=== PATIENT | female | born 1955 | race Caucasian/White ===

== ENCOUNTER 2019-06-10 05:54 | Inpatient (IN) | payer OTHER ==
[2019-06-05 12:02] VITALS: BMI 22.8
[~2019-06-10 05:54] MED LIST: CELECOXIB 200 MG CAPSULE PO ONE; PANTOPRAZOLE 40 MG TABLET PO ONE; oxyCODONE HCL 10 MG SUSTAINED ACTING TABLET PO ONE
[2019-06-10] MEDS ORDERED: oxyCODONE HCL 10 MG SUSTAINED ACTING TABLET ONE (06:23)
[2019-06-10] MEDS ORDERED: CELECOXIB 200 MG CAPSULE ONE (06:23)
[2019-06-10] MEDS ORDERED: BUPIVACAINE HCL/PF 0.5% (5 MG/ML) 30 ML VIAL IJ ONE (06:57)
[2019-06-10] MEDS ORDERED: MIDAZOLAM HCL 2 MG/2 ML SINGLE DOSE VIAL ONE ×4 (06:57→10:52)
[2019-06-10] MEDS ORDERED: ceFAZolin SODIUM 1 GM VIAL ONE ×3 (07:18→11:09)
[2019-06-10] MEDS ORDERED: VANCOMYCIN 1,000 MG VIAL (RESTRICTED TO ID ONLY) ONE ×2 (07:18→11:09)
[2019-06-10] MEDS ORDERED: TRANEXAMIC ACID 1000 MG/10 ML VIAL ONE ×2 (07:18→09:41)
[2019-06-10] MEDS ORDERED: PHENYLEPHRINE HCL 10 MG/1 ML SINGLE DOSE VIAL ONE ×2 (07:35→09:41)
[2019-06-10] MEDS ORDERED: PROPOFOL 20 ML ONE ×6 (07:36→10:37)
--- NOTE | 2019-06-10 07:45 | HP ---
Admitting History and Physical - Admission Chief Complaint: right hip osteoarthritis x years History of Present Illness: 63 year old female presents in regard to her right hip. Long-standing history of right hip osteoarthritis. Patient complains of pain, limited range of motion , difficulty ambulating, and difficulty with activities of daily living. Patient has failed conservative treatment options including PO medications, activity modification, injections, and exercise programs. At this point, patient like to proceed with surgical intervention, right total hip arthroplasty MAKOplasty. History Source: Patient - Past Medical History Cardiovascular: Yes: HTN Musculoskeletal: Yes: Osteoarthritis Dermatology: Yes: Psoriasis - Past Surgical History Additional Past Surgical History: See written history & physical. - Smoking History Smoking history: Former smoker Have you smoked in the past 12 months: No If you are a former smoker, when did you quit?: 1986 - Alcohol/Substance Use Hx Alcohol Use: Yes (RARE) Home Medications - Allergies Allergies/Adverse Reactions: Allergies Allergy/AdvReac Type Severity Reaction Status Date / Time No Known Drug Allergies Allergy Verified 06/05/19 11:51 - Home Medications Home Medications: Ambulatory Orders Ixekizumab [Taltz Syringe] 80 mg SQ MONTHLY 06/05/19 Lisinopril/Hydrochlorothiazide [Lisinopril-Hctz 20-12.5 mg Tab] 2 each PO DAILY 06/05/19 Review of Systems - Review of Systems Musculoskeletal: reports: Decreased ROM (right hip), Extremity Pain, Joint Pain (right hip) Physical Examination Vital Signs: Vital Signs Temperature 98.3 F 06/10/19 06:43 Pulse Rate 74 06/10/19 06:43 Respiratory Rate 18 06/10/19 06:43 Blood Pressure 140/80 06/10/19 06:43 O2 Sat by Pulse Oximetry (%) Constitutional: Yes: Well Nourished, No Distress Eyes: Yes: Conjunctiva Clear HENT: Yes: Atraumatic Neck: Yes: Supple Cardiovascular: Yes: Regular Rate and Rhythm Respiratory: Yes: Regular Gastrointestinal: Yes: Soft ...Rectal Exam: Yes: Deferred Musculoskeletal: Yes: Joint Stiffness (right hip), Joint Swelling (right hip) Assessment/Plan 63 year old female presents in regard to her right hip. Long-standing history of right hip osteoarthritis. Patient complains of pain, limited range of motion , difficulty ambulating, and difficulty with activities of daily living. Patient has failed conservative treatment options including PO medications, activity modification, injections, and exercise programs. At this point, patient like to proceed with surgical intervention, right total hip arthroplasty MAKOplasty. Pros, cons, risks, benefits, and alternatives of a right total hip arthroplasty MAKOplasty were discussed with the patient at length. Patient confirms their understanding and consents to proceed with a right total hip arthroplasty MAKOplasty.
[2019-06-10] MEDS ORDERED: BUPIVICAINE 0.25%/MORPH PF/KETOROLAC - 51ML DISP.SYRINGE IA ONE ×3 (08:00→10:03)
[2019-06-10] MEDS ORDERED: TRANEXAMIC ACID 1000 MG/10 ML VIAL IVPUSH ONE ×2 (08:00→10:02)
[2019-06-10] MEDS ORDERED: CEFAZOLIN 2 GM in DEXTROSE 5%-WATER - 50 ML IVPB ONE (08:00)
[2019-06-10] MEDS ORDERED: ePHEDrine SULFATE 50 MG/1 ML AMPULE ONE (08:25)
[2019-06-10] MEDS ORDERED: VANCOMYCIN 1,000 MG VIAL (RESTRICTED TO ID ONLY) IVPB ONE (09:47)
[2019-06-10] MEDS ORDERED: ONDANSETRON 4 MG/2 ML VIAL ONE (10:13)
[2019-06-10] MEDS ORDERED: DEXAMETHASONE SOD PHOSPHATE 4 MG/1 ML VIAL ONE (10:13)
--- NOTE | 2019-06-10 13:04 | OP ---
Operative Note - Note: Operative Date: 06/10/19 Pre-Operative Diagnosis: Right hip OA Operation: Right MITCH ANGELA Post-Operative Diagnosis: Same as Pre-op Surgeon: Vicente Magana Travel Professional: Tanner Bardales Anesthesia: Spinal Estimated Blood Loss (mls): 300
[2019-06-10] MEDS: KETOROLAC TROMETHAMINE 30 MG/1 ML VIAL IVPUSH SCH ×2 (13:15→18:32)
[2019-06-10] MEDS ORDERED: ACETAMINOPHEN 1000 MG/100 ML VIAL (NON FORMULARY) IVPB ONE (13:21)
[2019-06-10] MEDS ORDERED: MAGNESIUM HYDROX 2400MG/30ML ORAL SUSPENSION 30 ML CUP PO PRN (13:21)
[2019-06-10] MEDS ORDERED: MAG HYDROX/AL HYDROX/SIMETH 30 ML UNIT-DOSE CUP PO PRN (13:21)
[2019-06-10] MEDS ORDERED: IXEKIZUMAB 80 MG SQ SCH (13:30)
[2019-06-10] MEDS: traMADol HCL 50 MG TABLET PO SCH ×2 (13:30→18:33)
[2019-06-10] MEDS ORDERED: LACTATED RINGERS SOLUTION 1,000 ML IV SCH (13:30)
[2019-06-10] MEDS ORDERED: PROMETHAZINE HCL 25 MG/1 ML VIAL IVPUSH PRN (15:37)
[2019-06-10] MEDS ORDERED: ONDANSETRON 4 MG/2 ML VIAL IVPUSH PRN (15:37)
[2019-06-10] MEDS ORDERED: oxyCODONE HCL 5 MG TABLET PO PRN ×2 (15:37)
--- NOTE | 2019-06-10 17:17 | SPEC ---
DATE OF OPERATION: 06/10/2019 PREOPERATIVE DIAGNOSIS: Right hip osteoarthritis. POSTOPERATIVE DIAGNOSIS: Right hip osteoarthritis. PROCEDURE: Right total hip replacement with MAKOplasty robotic navigation. ATTENDING: Mayelin Mojica MD GAS COMBUSTION ENGINEER: NEREYDA Syed ANESTHESIA: Spinal plus sedation. ESTIMATED BLOOD LOSS: 300 mL. COMPLICATIONS: None. DISPOSITION: The patient was transferred to the PACU in stable condition. IMPLANTS USED: Justyn Accolade II size 4 femoral component, Justyn Trident II 48-mm acetabular component with 25 and 20-mm acetabular screws, MDM bipolar head ball and liner with inner +3-mm offset head ball. INDICATIONS: This is a 63-year-old female who presented to the office complaining of severe right hip pain. She was seen and examined by Dr. Mojica and diagnosed with severe right hip osteoarthritis. The patient was initially treated conservatively with injections, medications, and physical therapy but continued to have severe pain and ambulatory dysfunction. She was, therefore, indicated for a right total hip replacement. The risks, benefits, and alternatives to the procedure were explained to the patient in great detail, and she elected to proceed with the surgery. DESCRIPTION OF PROCEDURE: On the day of surgery, the patient was taken to the operating room and placed on the OR table. Spinal anesthesia was administered by the anesthesiologist. The patient was then positioned in the lateral decubitus position on the table and all bony prominences were padded. An axillary roll was placed. The operative hip was then prepped and draped in the usual sterile fashion and intravenous antibiotics were given for infection prophylaxis. A surgical time-out was then performed with the team, and the patients identity, procedure, side, availability of implants, and the administration of antibiotics were confirmed. An approximately 15-cm longitudinal incision was made through the skin centered on the greater trochanter of the hip. This dissection was carried down through the subcutaneous tissues to the deep fascia. This fascia was then incised and a Cobra was placed around the inferior femoral neck. Electrocautery was used to reflect the anterior 40% of the gluteus medius and minimus starting at the musculotendinous junction and leaving a cuff for closure. This was reflected to reveal the capsule of the hip joint. An anterior capsulectomy was performed and the femoral head and neck were visualized. Grade 4 changes were noted diffusely throughout the joint. At this point, three small stab incisions were made superior to the main incision along the iliac crest. Three self-drilling Steinmann pins were then placed and the Calera pelvic array was attached. Reference points on the limb were then entered into the robotic device and the limb length deficiency, offset, and femoral neck resection level were then calculated by the software. The hip was then dislocated with traction and external rotation. An oscillating saw was used to make the femoral neck cut at the level previously templated, and the femoral head was removed. Attention was then turned to the acetabulum. Retractors were then placed around the acetabulum and the labrum was removed. An acetabular checkpoint pin and the Calera software were used to register the contours of the acetabulum. The acetabulum was then reamed in a single stage to the preoperatively templated size using the Calera robotic arm. The appropriately sized cup was then impacted and had solid fixation as well as the preset inclination and version of 40 and 20 degrees, respectively. A polyethylene liner was then placed in the cup. Attention was then turned back to the femur, which was externally rotated for improved visualization. A femoral neck elevator was used to present the femoral neck cut, a box osteotome was used to enter the femoral canal, and a canal finder was used to go down the femoral shaft. The Leonid broaches were used sequentially until the optimal scratch fit was achieved. This correlated with the preoperatively templated size. From here, several different offset head and neck configurations were tested until excellent stability and length were obtained. These measurements were quantified using the Calera software. All trial components were then removed, the femur was copiously irrigated, and the final components were placed. After final implants were placed, a 3-minute dilute Betadine soak was performed. Following this, wound closure was begun. Once wound closure a completed and dressings were placed, a postoperative x-ray was taken intraoperatively. We noted on this x-ray that there was a foreign body present in the soft tissue adjust to lesser trochanter of the hip. Further analysis suggested that this foreign body was a screw, and evaluation of the instrumentation used revealed that a very small screw was missing from the LEONID offset reamer handler and that the other screws in the handle seemed to correspond to the screw seen on x-ray in size and appearance. Because there was a foreign body present and because the patient had not yet been taken off the OR table and sent to the PACU, we elected to immediately reopen the wound and retrieve the screw. The patient was placed back in the lateral decubitus position, and the right hip was prepped and draped in the usual sterile fashion after dressings were removed. From here, the previous closure was opened, and we opened all layers down to the level of the initial acetabular prep. From here, a C-arm was used to localize the screw, and it was determined that it was in the vicinity of the lesser trochanter and adductor musculature medial to the femur. A finger sweep was performed in this area, and we were able to easily retrieve the screw on the first try. The screw was then sent to be cleaned so that it could be returned to the housekeeping/laundry supervisor for a full investigation. Once the screw was retrieved, we again used the C-arm to take radiographs of the right hip, and it was confirmed that no foreign bodies were still present. The wound was then thoroughly irrigated with normal saline via pulsatile lavage. The saline contained 3 g of Ancef in a 3-L bag. Once this was completed, wound closure was begun as per the earlier dictation. Leg length and stability were checked again and found to be excellent. Irrigation was performed again. Wound closure was started by repairing the abductor muscles with a no. 2 FiberWire stitch in a Krackow configuration passed through bone tunnels in the greater trochanter and tied over a bony bridge. This repair was then reinforced with a 0 V-Loc 180 barbed suture. Next, no. 1 Polysorb and 0 V-Loc 180 were used to close the fascia. The deep subcutaneous tissue was closed with no. 1 Polysorb sutures, and 2-0 Polysorb was used for the superficial subcutaneous tissue. The skin was closed using both 3-0 V-Loc 90 suture in a running subcuticular fashion and SwiftSet skin adhesive. The Leonid array and pins were removed from the iliac crest and the stab incision sites were irrigated and closed with 4-0 Polysorb sutures and SwiftSet skin adhesive. Once this was completed, a sterile dressing was applied. The patient was then awakened and taken to the PACU in stable condition. MAYELIN MOJICA M.D. [id number]
[2019-06-10] MEDS: ACETAMINOPHEN 325 MG TABLET (FP) PO SCH ×2 (18:32→21:28)
[2019-06-10] MEDS: CEFAZOLIN 2 GM/D5W 2 GM/50 ML ML IVPB SCH (18:33)
[2019-06-10] MEDS ORDERED: DEXAMETHASONE SOD PHOSPHATE 10 MG/1 ML VIAL IVPB ONE (20:00)
[2019-06-10] MEDS: GABAPENTIN 300 MG CAPSULE PO SCH (21:27)
[2019-06-10] MEDS: ASCORBIC ACID 500 MG TABLET (FP) PO SCH (21:28)
[2019-06-10] MEDS: SENNOSIDES/DOCUSATE COMBO (SENNA PLUS) TABLET (UD) PO SCH (21:28)
[2019-06-10] MEDS: CELECOXIB 200 MG CAPSULE PO SCH (21:29)
[2019-06-10] MEDS: ONDANSETRON 4 MG/2 ML VIAL IVPUSH PRN (21:30)
[2019-06-11] MEDS: CEFAZOLIN 2 GM/D5W 2 GM/50 ML ML IVPB SCH (02:03)
[2019-06-11] MEDS: KETOROLAC TROMETHAMINE 30 MG/1 ML VIAL IVPUSH SCH (02:05)
[2019-06-11] MEDS: traMADol HCL 50 MG TABLET PO SCH ×3 (02:06→20:36)
[2019-06-11] MEDS: ACETAMINOPHEN 325 MG TABLET (FP) PO SCH ×3 (03:20→21:34)
[2019-06-11] MEDS: ASPIRIN 325 MG TABLET PO SCH (08:00)
[2019-06-11 08:07] LABS: HEMATOCRIT 31.5 % (32.4-45.2); MCH 31.4 pg (25.7-33.7); MCHC 34.7 g/dl (32.0-36.0); MEAN CELL VOLUME 90.3 fl (80-96); MEAN PLT VOLUME 8.6 fl (7.5-11.1); PLATELET COUNT 199 K/MM3 (134-434); RBC 3.49 M/mm3 (3.60-5.2); RDW 12.1 % (11.6-15.6); WHITE BLOOD COUNT 10.3 K/mm3 (4.0-10.8)
[2019-06-11 08:13] LABS: CALCIUM 8.5 mg/dl (8.5-10); CREATININE 0.6 mg/dl (0.55-1.3); POTASSIUM 3.7 mmol/L (3.5-5.1)
--- NOTE | 2019-06-11 09:07 | PN ---
Progress Note (short form) - Note Progress Note: 63F POD1 s/p R THR under spinal anesthetic with peripheral nerve block for post operative pain relief. Pt states that pain is well controlled and reports no anesthetic complications. AVSS. Continue current regimen.
[2019-06-11] MEDS: LISINOPRIL 20 MG TABLET (FP) PO SCH (10:00)
[2019-06-11] MEDS: SENNOSIDES/DOCUSATE COMBO (SENNA PLUS) TABLET (UD) PO SCH ×2 (10:00→21:34)
[2019-06-11] MEDS: HYDROCHLOROTHIAZIDE 25 MG TABLET (FP) PO SCH (10:00)
[2019-06-11] MEDS ORDERED: PATIENT'S OWN MEDICATION (NON-FORMULARY) (Lisinopril/Hydrochlorothiazide [Lisinopril-Hctz PO SCH (10:00)
[2019-06-11] MEDS: CELECOXIB 200 MG CAPSULE PO SCH ×2 (10:00→21:35)
[2019-06-11] MEDS: PANTOPRAZOLE 40 MG TABLET PO SCH (10:00)
[2019-06-11] MEDS: ASCORBIC ACID 500 MG TABLET (FP) PO SCH ×2 (10:00→21:35)
[2019-06-11] MEDS: MULTIVITAMINS (DAILY MVI) TABLET (FP) PO SCH (10:05)
[2019-06-11] MEDS: GABAPENTIN 300 MG CAPSULE PO SCH ×2 (10:26→21:35)
[2019-06-11] MEDS: ONDANSETRON 4 MG/2 ML VIAL IVPUSH PRN (11:28)
[2019-06-12 01:39] VITALS: BP 85/44; PULSE 62; TEMP 98.2
[2019-06-12] MEDS: ACETAMINOPHEN 325 MG TABLET (FP) PO SCH ×2 (05:54→09:15)
[2019-06-12] MEDS: traMADol HCL 50 MG TABLET PO SCH ×2 (05:54→07:45)
[2019-06-12] MEDS: ASPIRIN 325 MG TABLET PO SCH (08:00)
[2019-06-12] MEDS: CELECOXIB 200 MG CAPSULE PO SCH (09:03)
[2019-06-12] MEDS: GABAPENTIN 300 MG CAPSULE PO SCH (09:13)
[2019-06-12] MEDS: SENNOSIDES/DOCUSATE COMBO (SENNA PLUS) TABLET (UD) PO SCH (09:13)
[2019-06-12] MEDS: LISINOPRIL 20 MG TABLET (FP) PO SCH (09:13)
[2019-06-12] MEDS: HYDROCHLOROTHIAZIDE 25 MG TABLET (FP) PO SCH (09:13)
[2019-06-12] MEDS: PANTOPRAZOLE 40 MG TABLET PO SCH (09:14)
[2019-06-12] MEDS: MULTIVITAMINS (DAILY MVI) TABLET (FP) PO SCH (09:14)
[2019-06-12] MEDS: ASCORBIC ACID 500 MG TABLET (FP) PO SCH (09:17)
--- NOTE | 2019-06-12 12:04 | DS ---
Physical Examination Vital Signs: Vital Signs Temperature 98.2 F 06/12/19 01:37 Pulse Rate 62 06/12/19 01:37 Respiratory Rate 16 06/12/19 07:39 Blood Pressure 85/44 L 06/12/19 01:37 O2 Sat by Pulse Oximetry (%) 95 06/12/19 07:39 Labs: CBC, BMP 06/11/19 07:07 06/11/19 07:07 Discharge Summary Problems reviewed: Yes Reason For Visit: UNIL PRIMARY OSTEOARTHRITIS RT HIP Current Active Problems Osteoarthritis of right hip (Acute) Procedures: Principal: right MITCH ANGELA Hospital Course: Admitted for elective surgery. Procedure performed without complications. Pt received postoperative antibiotic prophylaxis and DVT ppx. Ambulated with physical therapy. Stable for discharge home with outpatient followup. Condition: Stable - Instructions Diet, Activity, Other Instructions: Dr Magana - Hip Replacement Instructions Keep the Aquacel dressing on until removed by Dr. Magana in 2 weeks - it is antibacterial and waterproof and you can shower with it on. Call the office for a follow-up appointment with Dr. Magana in 2 weeks. [phone] Take one Aspirin 325mg daily for 6 weeks to prevent blood clots in your legs. Take one Pantoprazole 40mg daily for 6 weeks to protect against heartburn and ulcers. Take Cephalexin (antibiotic) 3x/day for 10 days to help prevent skin infection. Take Celebrex 200mg twice daily for 30 days to reduce swelling and inflammation. Take a multivitamin, stool softener and extra Vitamin C supplement daily. For pain: *Mild pain (1-3/10): Take 1 Tramadol tablet every 4 hours as needed. Moderate pain (4-6/10): Take 1 Tramadol tablet and 1 Percocet tablet every 4 hours as needed. Severe pain (7-10/10): Take 1 Tramadol tablet and 2 Percocet tablets every 4 hours as needed. Activity: You can put as much weight on the operative leg as you want. For the first 6 weeks, all you need to do is walk around the house, go up/down stairs, and sit down/get up. After 6 weeks when everything is healed (and bone has grown into the implant) you will be sent for more intensive outpatient physical therapy. Always use a walker or cane for balance and to prevent falls. Expect to see swelling / bruising from the operative site all the way down to your toes. Wear the Compression stocking on the operative side during the day to minimize how much swelling there is in your foot/ankle. Don't wear the stocking at night. You don't have to wear the stocking on the other side. Disposition: [facility]NS/HOME HEALTH CARE - Home Medications Comprehensive Discharge Medication List: Ambulatory Orders Lisinopril/Hydrochlorothiazide [Lisinopril-Hctz 20-12.5 mg Tab] 2 each PO DAILY 06/05/19 Ascorbic Acid [Vitamin C -] 500 mg PO BID tablet 06/12/19 Aspirin [ASA -] 325 mg PO DAILY@0800 tablet 06/12/19 Celecoxib [CeleBREX -] 200 mg PO BID #60 capsule 06/12/19 Cephalexin Monohydrate [Keflex -] 500 mg PO TID #30 capsule 06/12/19 Multivitamins [Multivit ([facility] Formulary)] 1 tab PO DAILY tab 06/12/19 Oxycodone HCl/Acetaminophen [Percocet 5-325 mg Tablet] 1 - 2 tab PO Q4H PRN #60 tablet MDD 10 06/12/19 Pantoprazole Sodium [Protonix -] 40 mg PO DAILY #40 tablet.ec 06/12/19 Sennosides/Docusate Sodium [Pericolace -] 2 tablet PO BID tablet 06/12/19 traMADol HCL [Ultram -] 50 mg PO Q4H PRN #42 tablet MDD 6 06/12/19
--- NOTE | 2019-06-20 10:07 | PATH ---
Surgical Pathology Report Patient Name: GLEN LOPEZ Med. Rec. #: [id number] /Age/Gender: 1955 (Age: 63) / F Account: [id number] Location: [facility] MED-SURG Taken: 06/10/2019 Received: 06/10/2019 Reported: 06/20/2019 Physicians: Vicente Magana M.D. Specimen(s) Received RIGHT FEMORAL HEAD Clinical History Right hip osteoarthritis Final Diagnosis FEMORAL HEAD, RIGHT, TOTAL HIP REPLACEMENT: CARTILAGE CAPPED BONE WITH MARKED THINNING OF CARTILAGINOUS ARTICULAR SURFACE, CONSISTENT WITH DEGENERATIVE JOINT DISEASE. MARROW ELEMENTS WITH ACTIVE HEMATOPOIESIS (SEE NOTE). Note: This case was sent to [facility], [place], [place] due to the presence of an increased number of interstitial plasma cells in order to evaluate for plasma cell dyscrasia. The above diagnosis was rendered there by Dr. Tanner Guerra and the following panel of immunohistochemical stains was performed: CD3, CD20, cunningham-cytokeratin (AE1:AE3), CD138, MUM-1, kappa light chain & lambda light chain. The cunningham-cytokeratin stain is negative for metastatic carcinoma. The CD3 stain shows a normal population of interstitial marrow T-cells (10% of nucleated marrow elements). The immunohistochemical stain for CD20 is negative. The stains for MUM1, CD138, kappa light chain & lambda light show a polyclonal/reactive/benign population of interstitial. plasma cells (no sheets or infiltrates identified) comprising <5% of nucleated marrow elements. There is no diagnostic evidence of a plasma cell dyscrasia/neoplasm. See also complete [facility] report ([id number]). Electronically Signed Jayshree Walsh M.D. Gross Description Received in formalin, labeled "right femoral head," is a 3.8 x 3.8 x 2.7 cm. femoral head with a 1.3 cm in length portion of femoral neck attached. The margin of resection is smooth. There is a 4.1 cm in greatest dimension area of eburnation present. The remaining articular surface is hanley-yellow and focally nodular and granular. The underlying trabecular bone is yellow and hard. A disability representative section is submitted in one cassette, following decalcification. /06/11/2019 saudi/06/11/2019
== END 2019-06-12 12:38 | disposition home health service (06) | DRG 301 ==
LOC: FM/S 05:54 → UNDODISIN 06-11 08:58
PROVIDERS: ADMIT Student in an Organized Health Care Education/Training Program; ATTEND Student in an Organized Health Care Education/Training Program
PROC: 8E0W0CZ Robotic Assisted Procedure of Trunk Region, Open Approach (ICD-10-PCS; 2019-06-10)
PROC: 0SR90JZ Replacement of Right Hip Joint with Synthetic Substitute, Open Approach (ICD-10-PCS; principal; 2019-06-10 08:44)
DX: M16.11 Unilateral primary osteoarthritis, right hip (principal); I10 Essential (primary) hypertension
CPT/HCPCS: 36415; 73502-TC-RT-FY; 73523-TC-FY; 80048; 85027; 94760; 97116-GP; 97163-GP; J0131; J1100